=== PATIENT | male | born 1935 | race Two or more races ===

== ENCOUNTER 2017-11-25 17:38 | Emergency (ER) | payer MEDICARE, MEDICAID ==
[~2017-11-25] VITALS: Ht 170.2 cm; Wt 65.8 kg
--- NOTE | 2017-11-25 17:40 | NUR ---
[facility] FROM [facility]: GENERALIZED BODY WEAKNESS, NAD NOTED, VSS, RESP EVEN AND UNLABORED, PT PUT ON MONITOR AND HOSPITAL GOWN. WAITING FOR MD KHAN.
[2017-11-25 18:16] LABS: BASOPHILS % (AUTO) 0.4 % (0.0-2.0); EOSINOPHILS % (AUTO) 0.8 % (0.0-6.0); HEMATOCRIT 26 % (39-51); HEMOGLOBIN 8.4 g/dL (13.5-17.5); MEAN CORPUSCULAR HGB CONC 33 g/dl (31.0-36.0); MEAN CORPUSCULAR VOLUME 75 fL (80-96); MONOCYTES # (AUTO) 0.6 /CMM (0.1-1.30); MONOCYTES % (AUTO) 6.8 % (2.0-12.0); PLATELET COUNT (AUTO) 407 /CMM (150-450); RDW COEFFICIENT OF VARIATION 19.9 (11.5-15.0); RED BLOOD CELL COUNT(AUTO) 3.39 MIL/uL (4.5-6.0); WHITE BLOOD COUNT (AUTO) 8.7 K/uL (4.3-11.0)
[2017-11-25] MEDS ORDERED: AMLO10TA6 PO (18:21)
[2017-11-25] MEDS ORDERED: FOLI0.8T23 PO (18:21)
[2017-11-25] MEDS ORDERED: ASPI-1169 PO (18:21)
[2017-11-25] MEDS ORDERED: ACET-868 PO (18:21)
[2017-11-25] MEDS ORDERED: METO25TA20 PO (18:21)
[2017-11-25] MEDS ORDERED: LACT1CAP71 PO (18:21)
[2017-11-25] MEDS ORDERED: ROSU5TAB PO (18:21)
[2017-11-25] MEDS ORDERED: ALBU1.257 IH (18:21)
[2017-11-25] MEDS ORDERED: PANT40TA2 PO (18:21)
[2017-11-25] MEDS ORDERED: CLON0.1T PO (18:21)
[2017-11-25] MEDS ORDERED: TERA5CAP4 PO (18:21)
[2017-11-25] MEDS ORDERED: DUTA0.5C PO (18:21)
[2017-11-25] MEDS ORDERED: HYDR-4076 PO (18:21)
[2017-11-25] MEDS ORDERED: FERR325T23 PO (18:21)
--- NOTE | 2017-11-25 18:23 | NUR ---
PT BACK FROM XRAY
[2017-11-25 18:50] LABS: ALANINE AMINOTRANSFERASE 28 U/L (12-78); ALBUMIN 2.5 g/dL (3.4-5.0); ALKALINE PHOSPHATASE 104 U/L (46-116); ASPARTATE AMINOTRANSFERASE 21 U/L (15-37); B-TYPE NATRIURETIC PEPTIDE 2173 PG/ML (0-125); BILIRUBIN,DIRECT 0.3 mg/dL (0.0-0.2); BILIRUBIN,TOTAL 0.6 mg/dL (0.2-1.0); CALCIUM, SERUM 8.4 mg/dL (8.5-10.1); CARBON DIOXIDE 25 mmol/L (21-32); CHLORIDE 101 mmol/L (98-107); GLUCOSE 110 mg/dL (74-106); POTASSIUM 4.6 mmol/L (3.5-5.1); SODIUM SERUM 139 mmol/L (136-145); TOTAL PROTEIN, SERUM 7.3 g/dL (6.4-8.2)
[2017-11-25 18:52] LABS: UREA NITROGEN, BLOOD 109 mg/dL (7-18)
--- NOTE | 2017-11-25 20:28 | NUR ---
CALLED [facility] FOR TRANSPORT ETA 4810 OF WAS GIVEN. TRIP#[id number]
[2017-11-25] MEDS ORDERED: FUROSEMIDE 40 MG/4 ML VIAL IV ONE (20:30)
--- NOTE | 2017-11-25 20:55 | NUR ---
CALLED [facility] FOR TRANSPORT, ETA OF 45 MINS WAS GIVEN.
[2017-11-25] MEDS ORDERED: FUROSEMIDE 40 MG TABLET ONE (21:34)
[2017-11-25] MEDS ORDERED: FUROSEMIDE 20 MG/2 ML VIAL ONE (21:35)
[2017-11-25] MEDS ORDERED: FUROSEMIDE 40 MG/4 ML VIAL ONE (21:35)
--- NOTE | 2017-11-25 21:47 | NUR ---
CALLED [facility] TO CANCEL TRIP.
[2017-11-25 21:51] VITALS: BP 129/72
== END 2017-11-25 22:20 | disposition short-term general hospital (02) ==
LOC: ER 17:39
DX: N17.9 Acute kidney failure, unspecified (principal); J18.9 Pneumonia, unspecified organism; I13.0 Hypertensive heart and chronic kidney disease with heart failure and stage 1 through stage 4 chronic kidney disease, or unspecified chronic kidney disease; I50.9 Heart failure, unspecified; N18.9 Chronic kidney disease, unspecified; I31.4 Cardiac tamponade; I34.0 Nonrheumatic mitral (valve) insufficiency; D64.9 Anemia, unspecified; E78.5 Hyperlipidemia, unspecified; F32.9 Major depressive disorder, single episode, unspecified; I42.9 Cardiomyopathy, unspecified; K21.9 Gastro-esophageal reflux disease without esophagitis; N40.0 Benign prostatic hyperplasia without lower urinary tract symptoms; Z79.82 Long term (current) use of aspirin
CPT/HCPCS: 36415; 71046; 80048; 80076; 83605; 83880; 84484; 85025; 87081; 87804; 93005; 93307; 96374; 99285; A4606; J1940 ×2; 87400; Z7610